=== PATIENT | female | born 1960 | race Caucasian/White ===

== ENCOUNTER 2016-11-20 15:20 | Emergency (ER) | payer BC ==
[~2016-11-20] VITALS: Ht 162.6 cm; Wt 53.0 kg
[~2016-11-20 15:20] MED LIST: ALB.5NB20 IH
[2016-11-20 15:24] VITALS: Ht 162.6 cm; Wt 53.0 kg
[2016-11-20] MEDS ORDERED: DIPHTH/TET/ACEL PERTUSS (ADULT) 0.5 ML VIAL IM* ONE (16:30)
--- NOTE | 2016-11-20 17:15 | RADRPT ---
PROCEDURE: XR Knee. CLINICAL INDICATION: Pain TECHNIQUE: AP, lateral and oblique view of the right knee were obtained. The images reviewed on a PACS workstation. COMPARISON: None. FINDINGS: Three views of the right knee demonstrate no displaced fracture. No gross malalignment is seen. Th ere is no significant degenerate change. No patellofemoral disease is identified. No knee joint effu josseline is seen.. The bones normally mineralized. There is mild prepatellar soft tissue swelling. IMPRESSION: No acute fracture dislocation Mild prepatellar soft tissue swelling RPTAT: HH .Rufino Boggs MD, MD Date Time Electronically viewed and signed by .Rufino Boggs MD, on 11/20/2016 17:14 .W/
[2016-11-20] MEDS ORDERED: LIDOCAINE 2% (MDV) 20 ML INJ INJ ONE (18:00)
[2016-11-20] MEDS ORDERED: ACET500C5 PO (18:28)
[2016-11-20] MEDS ORDERED: CEPH-443 PO (18:28)
--- NOTE | 2016-11-20 18:51 | ERD ---
ER Documentation Chief Complaint Date/Time DATE: 11/20/16 TIME: 18:46 Chief Complaint lac on r, knee HPI 56-year-old female patient with a past medical history of celiac disease presents to the ED complaining of a laceration on her right knee. States that she was [place] running and actually slipped and fell onto rocks. Denies any head or neck injuries. Denies any loss of consciousness. Reports that she is up-to-date with her tetanus vaccine. Denies any weakness, numbness or tingling , nausea, vomiting, loss of sensation, loss of range of motion. ROS All systems reviewed and are negative except as per history of present illness. Medications Home Meds Active Scripts Acetaminophen* (Tylophen*) 500 Mg Capsule, 1 CAP PO Q6H Y for PAIN AND OR ELEVATED TEMP, #20 CAP Prov:BRIAN OSWALD PA-C 11/20/16 Cephalexin* (Keflex*) 500 Mg Capsule, 500 MG PO QID for 7 Days, CAP Prov:BRIAN OSWALD PA-C 11/20/16 Reported Medications Albuterol Sulfate* (Albuterol Sulfate* Neb) 20 Ml Nebu, 20 ML IH DAILY Y 11/14/10 Allergies Allergies: Coded Allergies: Penicillins (Verified Allergy, Unknown, 11/20/16) PMhx/Soc History of Surgery: Yes (OVARIAN SX x3,LT OOPHORECTOMY) Anesthesia Reaction: No Hx Neurological Disorder: No Hx Respiratory Disorders: Yes (ASTHMA) Hx Cardiac Disorders: No Hx Psychiatric Problems: No Hx Miscellaneous Medical Probl: No Hx Alcohol Use: No Hx Substance Use: No Hx Tobacco Use: No Physical Exam Vitals Vital Signs Date Time Temp Pulse Resp B/P Pulse Ox O2 Delivery O2 Flow Rate FiO2 11/20/16 15:24 97.6 68 16 122/68 100 Physical Exam Const: [id number], well-nourished. In no acute distress. Head: Atraumatic, normocephalic Eyes: Normal Conjunctiva without injection ENT: Normal external ear, nose and mouth. Neck: Full range of motion. No meningismus. Resp: Clear to auscultation bilaterally. No wheezing, rhonchi, rales, or crackles. No accessory muscle use. No retractions. Cardio: Regular rate and rhythm, no murmurs Skin: No petechiae or rashes Back: No midline tenderness. No CVA tenderness. Ext: No cyanosis, or edema. Cap refill less than 2 seconds. Distal pulses intact bilaterally. 4 cm laceration on the inferior portion of patient's right knee with slight surrounding erythema and scabbing noted. Abrasions noted. No edema noted. Neur: Awake and alert. Normal gait and coordination. Muscle strength 5/5. Sensation intact bilaterally. Psych: Normal Mood and Affect Results 24 hrs Current Medications Medications (Trade) Dose Ordered Sig/Noemi Route PRN Reason Start Time Stop Time Status Last Admin Dose Admin Diphtheria/ Tetanus/Acell Pertussis (Adacel) 0.5 ml ONCE ONCE IM* 11/20/16 16:30 11/20/16 16:31 DC 11/20/16 17:17 Lidocaine (Xylocaine 2% (Mdv) 20 ml) 20 ml ONCE ONCE INJ 11/20/16 18:00 11/20/16 18:01 DC Procedures/MDM This is a 56-year-old female patient with a past medical history of celiac disease presents to the ED complaining of a laceration on the right knee. Patient is afebrile and nontoxic-appearing. Patient has normal vital signs. Patient gave consent to perform laceration repair. Laceration Repair by me: Anesthesia: 4 cc 1% lidocaine locally Location: [Right inferior knee] Tendon/Joint/Nerves: No injury Foreign body: None detected after copious irrigation and exploration Technique: 7 3-0 Ethilon Simple Interrupted Sutures Complexity: No subcutaneous sutures/mucosal repair/ edge excision Post Closure Length: [3] cm, 2 cm flap like lesion noted Patient's bleeding was easily controlled in the department and there is no indication of anemia. Patient is neurovascularly intact. No evidence of compartment syndrome, neurologic injury, vascular injury, open joint, tendon laceration, or foreign body. Patient is appropriate for outpatient follow up. 48 hour wound check. Scar minimization instructions given. Instructed patient to return for suture removal in 7-10 days. Keflex was prescribed to patient for infection prevention. Instructed patient to return to the ED sooner for any worsening symptoms. Follow up with primary care physician in 1-2 days. Patient's questions were answered. Patient understood and agreed with discharge plan. \ Departure Diagnosis: Primary Impression: Laceration of knee, right Encounter type: initial encounter Qualified Code: S81.011A - Laceration of knee, right, initial encounter Condition: Stable Patient Instructions: Laceration, Extrem (Suture, Staple, Or Tape) Referrals: [facility] YOU HAVE RECEIVED A MEDICAL SCREENING EXAM AND THE RESULTS INDICATE THAT YOU DO NOT HAVE A CONDITION THAT REQUIRES URGENT TREATMENT IN THE EMERGENCY DEPARTMENT. FURTHER EVALUATION AND TREATMENT OF YOUR CONDITION CAN WAIT UNTIL YOU ARE SEEN IN YOUR DOCTORS OFFICE WITHIN THE NEXT 1-2 DAYS. IT IS YOUR RESPONSIBILITY TO MAKE AN APPOINTMENT FOR FOLOW-UP CARE. IF YOU HAVE A PRIMARY DOCTOR --you should call your primary doctor and schedule an appointment IF YOU DO NOT HAVE A PRIMARY DOCTOR YOU CAN CALL OUR PHYSICIAN REFERRAL HOTLINE AT IF YOU CAN NOT AFFORD TO SEE A PHYSICIAN YOU CAN CHOSE FROM THE FOLLOWING [facility] [address] [facility]. [facility] [address] [facility]. [facility] [address] [facility] [facility] [address] [facility] [address] [facility]. [facility] [address] [facility]. [facility] YOU HAVE RECEIVED A MEDICAL SCREENING EXAM AND THE RESULTS INDICATE THAT YOU DO NOT HAVE A CONDITION THAT REQUIRES URGENT TREATMENT IN THE EMERGENCY DEPARTMENT. FURTHER EVALUATION AND TREATMENT OF YOUR CONDITION CAN WAIT UNTIL YOU ARE SEEN IN YOUR DOCTORS OFFICE WITHIN THE NEXT 1-2 DAYS. IT IS YOUR RESPONSIBILITY TO MAKE AN APPOINTMENT FOR FOLOW-UP CARE. IF YOU HAVE A PRIMARY DOCTOR --you should call your primary doctor and schedule and appointment IF YOU DO NOT HAVE A PRIMARY DOCTOR YOU CAN CALL OUR PHYSICIAN REFERRAL HOTLINE AT . IF YOU CAN NOT AFFORD TO SEE A PHYSICIAN YOU CAN CHOSE FROM THE FOLLOWING [facility] INSTITUTIONS: [facility] [address] [place] [address] [facility] [address] [place] [address] [facility] + [facility] [address] [place] [address] [facility] URGENT CARE/SPECIALTIES Additional Instructions: Follow up in 2 days in your clinic for wound check. Follow up with your physician to remove the stitches:For Face wounds 5-7 days.For Elsewhere on the body 7-10 days. Call your primary care doctor TOMORROW for an appointment during the next 2-3 days.See the doctor sooner or return here if your condition worsens before your appointment time. BRIAN OSWALD PA-C Nov 20, 2016 18:51
== END 2016-11-20 18:42 | disposition home or self-care (01) ==
LOC: FTE 15:20
DX: S81.011A Laceration without foreign body, right knee, initial encounter (principal); J45.909 Unspecified asthma, uncomplicated; Y92.9 Unspecified place or not applicable
CPT/HCPCS: 73562; 90471; 90715